=== PATIENT | female | born 1980 | race Caucasian/White ===

== ENCOUNTER 2020-07-06 11:04 | Emergency (ER) | payer OTHER ==
[~2020-07-06] VITALS: Ht 167.6 cm; Wt 71.0 kg
[2020-07-06] MEDS ORDERED: OMEPRAZOLE20 MG PO (12:40)
[2020-07-06] MEDS ORDERED: TIZANIDINE HCL2 M1 PO (12:40)
== END 2020-07-06 16:10 | disposition home or self-care (01) ==
LOC: ED 11:04
DX: S06.0X1A Concussion with loss of consciousness of 30 minutes or less, initial encounter (principal); W00.0XXA Fall on same level due to ice and snow, initial encounter; G43.909 Migraine, unspecified, not intractable, without status migrainosus; Z79.899 Other long term (current) drug therapy; Z88.2 Allergy status to sulfonamides
CPT/HCPCS: 70450; 99284-25

== ENCOUNTER 2022-03-19 01:30 | Emergency (ER) | payer OTHER ==
[~2022-03-19] VITALS: Ht 167.6 cm; Wt 68.0 kg
[~2022-03-19 01:30] MED LIST: OMEPRAZOLE20 MG PO; TIZANIDINE HCL2 M1 PO
--- OUTSIDE RECORDS SUMMARY | 2022-03-19 01:35 | XMS ---
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 EAlejandro VISIT COUNT (12 MO.) 1 MARTINA Grigsby TOTAL 1 NOTE: Visits indicate total known visits. ED/UCC VISIT TRACKING (12 MO.) 03/19/2022 01:32 MARTINA Dias [place] TYPE: Emergency COMPLAINT: - UPPER ABD PAIN INPATIENT VISIT TRACKING (12 MO.) No inpatient visits to display in this time frame [id number]
[2022-03-19] MEDS ORDERED: VENLAFAXINE H37.5 M1 PO (02:00)
[2022-03-19] MEDS ORDERED: OXYCODONE-ACET1 EAC1 PO (02:00)
[2022-03-19] MEDS ORDERED: PERCOCET 5-3251 EACH PO (04:38)
== END 2022-03-19 05:20 | disposition home or self-care (01) ==
LOC: ED 01:30
DX: K52.9 Noninfective gastroenteritis and colitis, unspecified (principal); G43.909 Migraine, unspecified, not intractable, without status migrainosus; Z88.2 Allergy status to sulfonamides; Z88.6 Allergy status to analgesic agent; Z79.899 Other long term (current) drug therapy
CPT/HCPCS: 36415; 74177; 80053; 81001; 83690; 84703; 85025; 96361; 96375; 96376; 99284-25; J1170; J1885; J2405; J7030; Q9967